=== PATIENT | male | born 1965 | race Caucasian/White ===

== ENCOUNTER → 2021-03-04 14:07 | Outpatient (BNVA) | payer OTHER, SELFPAY | PROVIDERS: Visit Provider Internal Medicine | DX: S46.819A Strain of other muscles, fascia and tendons at shoulder and upper arm level, unspecified arm, initial encounter (principal); S39.012A Strain of muscle, fascia and tendon of lower back, initial encounter; X58.XXXA Exposure to other specified factors, initial encounter; B02.9 Zoster without complications | CPT/HCPCS: 99202 ==

== ENCOUNTER → 2021-03-07 08:59 | Outpatient (BNVA) | payer OTHER, SELFPAY | PROVIDERS: Visit Provider Internal Medicine | DX: B02.9 Zoster without complications (principal); M54.9 Dorsalgia, unspecified | CPT/HCPCS: 99213 ==